=== PATIENT | female | born 1955 | race Caucasian/White ===

== ENCOUNTER → 2017-05-13 | Outpatient (CLI) | payer OTHER | LOC: MC.RAD 12:47 | DX: Z12.31 Encounter for screening mammogram for malignant neoplasm of breast (principal) ==

== ENCOUNTER → 2018-06-28 | Outpatient (CLI) | payer MEDICARE | LOC: MC.RAD 14:03 | DX: Z12.31 Encounter for screening mammogram for malignant neoplasm of breast (principal) ==

== ENCOUNTER 2018-11-29 14:49 | Outpatient (RCR) | payer MEDICARE | END 2019-01-17 10:15 | disposition home or self-care (01) | LOC: MKS.ESL.PT 14:49 | DX: M25.512 Pain in left shoulder (principal); Z98.890 Other specified postprocedural states ==